=== PATIENT | female | born 1975 | race African-American/Black ===

== ENCOUNTER 2025-05-08 18:17 | Emergency (ER) | payer OTHER ==
[~2025-05-08] VITALS: Ht 170.2 cm; Wt 82.0 kg
[2025-05-08 18:26] VITALS: TEMP 37.1
[2025-05-08] MEDS ORDERED: ONDANSETRON HCL 4MG/2ML INJ IV ONE (19:00)
[2025-05-08] MEDS ORDERED: MORPHINE SULFATE 4 MG/ML INJ (FOR IV/IM USE) IV ONE (19:00)
[2025-05-08] MEDS: ONDANSETRON HCL 4MG/2ML INJ IV SCH (20:40)
[2025-05-08] MEDS: MORPHINE SULFATE 4 MG/ML INJ (FOR IV/IM USE) IV SCH (20:40)
[2025-05-08] MEDS ORDERED: OXYC-100 MT (21:11)
[2025-05-08] MEDS: KETAMINE HCL 50 MG/ML 10ML IV ONE (21:11)
[2025-05-08] MEDS ORDERED: IBUP-1455 MT (21:11)
[2025-05-08 21:16] VITALS: TEMP 98; O2SAT 98
[2025-05-08] MEDS: IBUPROFEN 600MG TABLET PO ONE (23:33)
[2025-05-08] MEDS: ONDANSETRON HCL 4MG/2ML INJ IV PRN (23:34)
[2025-05-08] MEDS: MORPHINE SULFATE 4 MG/ML INJ (FOR IV/IM USE) IV PRN (23:34)
[2025-05-08 23:37] VITALS: BP 140/82; PULSE 93; RESP 19; O2SAT 96
== END 2025-05-08 23:45 | disposition home or self-care (01) ==
LOC: ER 18:17
DX: S82.832A Other fracture of upper and lower end of left fibula, initial encounter for closed fracture (principal); Z98.890 Other specified postprocedural states; X50.1XXA Overexertion from prolonged static or awkward postures, initial encounter; Y93.89 Activity, other specified; Y92.89 Other specified places as the place of occurrence of the external cause; Y99.8 Other external cause status
CPT/HCPCS: 73590; 73600; 73610; 27825; 96374; 96375; 96376; 99152; 99285; J3490; J2405; J2270; Z7610 ×2; A6449